=== PATIENT | male | born 1950 | race Caucasian/White ===

== ENCOUNTER → 2016-10-24 | Day surgery (SDC) | payer MEDICARE ==
[~2016-10-24] VITALS: Ht 175.3 cm; Wt 100.0 kg
[~2016-10-24] MED LIST: 0.9% Sodium Chloride 1,000 ML IV SCH; ASPI-973 PO; LOSA1TAB69 PO; MESA4KIT2 RC; Sodium Chloride LOK Flush 10 mL Syringe IV PRN; [UNRECOGNIZED DRUG - CODE] RC; fentaNYL-PF 50 mCg/mL 2 mL Inj IVPUSH PRN
[2016-10-24 09:21] VITALS: BP 120/80; PULSE 60; RESP 14; O2SAT 96
[2016-10-24 10:15] VITALS: BP 123/67; PULSE 65; RESP 15; O2SAT 95
[2016-10-24 10:32] VITALS: BP 130/88; PULSE 68; RESP 14; O2SAT 96
[2016-10-24 10:43] VITALS: BP 118/76; PULSE 52; RESP 14; O2SAT 97
--- NOTE | 2016-10-24 16:20 | ENDO ---
[address] [address] ENDOSCOPY PROCEDURE PATIENT: JORGE LUIS LEÓN : 1950 MR#: [id number] ADMIT: 10/24/2016 JOB ID: [id number] PROCEDURE: Colonoscopy. INDICATION: Rectal bleeding. Patient with a history of proctitis. The patient's ASA classification is II. Mallampati score is II. MEDICATIONS: Versed 4 mg, fentanyl 100 mcg. INSTRUMENT USED: PCF-H180AL. Prep quality was fair. PROCEDURE DETAILS: After informed consent was obtained, the patient was brought into the GI suite, where he was placed on oxygen via nasal cannula and monitored with continuous pulse oximeter, telemetry, and blood pressure monitoring. A time-out was performed. Then, he was placed in a left lateral decubitus position and medications were administered for sedation. Digital rectal exam was performed with palpation of the prostate, which was unremarkable. The colonoscope was then inserted into the rectum and advanced under direct visualization to the cecum, which was identified by the presence of the ileocecal valve and appendiceal orifice. I was unable to intubate the terminal ileum despite multiple attempts. Next, once the cecum was reached, the colonoscope was withdrawn as the mucosa and lumen were examined. Random biopsies were obtained throughout the entire colon. In the rectum, retroflexion was performed. Following retroflexion, remaining air in the rectum was suctioned, procedure was completed. IMPRESSION: Erythema and edema in the distal rectum. Otherwise, normal exam to cecum. Multiple random biopsies were obtained throughout the entire colon and the rectum. IMPRESSION: Distal proctitis. RECOMMENDATIONS: Canasa suppositories daily and hydrocortisone suppositories daily for two weeks. COMPLICATIONS: None. ESTIMATED BLOOD LOSS: Less than 5 mL.
--- NOTE | 2016-10-25 10:35 | PATH ---
SURGICAL PATHOLOGY Attending Physician:Beau Man CASE STATUS: Signed Out PATIENT NAME: JORGE LUIS LEÓN PID: [id number] : 1950 DATE COLLECTED:10/24/2016 16:28 SPECIMEN: 1: Colon, Biopsy 2: Colon, Biopsy 3: Colon, Biopsy 4: Rectum, Biopsy 5: Rectum, Biopsy CLINICAL HISTORY: PHX OF COLITIS, PHX OF POLYPS 1). RIGHT COLON BIOPSY 2). TRANSVERSE COLON BIOPSY 3). LEFT COLON BIOPSY 4). RECTAL BIOPSY 5). DISTAL RECTAL BIOPSY FINAL DIAGNOSIS: 1, 2, 3. Biopsies, Right Colon, Transverse Colon, and Left Colon: Multiple fragments of normal appearing colon mucosa present in all three specimens. Negative for significant architectural distortion. Negative for significant inflammation, dysplasia, and malignancy. 4. Rectal Biopsy: Architectural distortion consistent with quiescent colitis. Negative for dysplasia and malignancy. 5. 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 Negative for dysplasia and malignancy. ICD10: K52.9 GROSS DESCRIPTION: The specimen is received in five formalin filled containers labeled with the patient's name. 1). The specimen is labeled "right colon" and consists of 4 portions of tissue which aggregate to 0.3 x 0.3 x 0.2 CM. The specimen is entirely submitted in cassette 1A. 2). The specimen is labeled "transverse colon" and consists of 4 portions of tissue which aggregate to 0.3 x 0.3 x 0.2 CM. The specimen is entirely submitted in cassette 2A. 3). The specimen is labeled "left colon" and consists of multiple portions of tissue which aggregate to 0.4 x 0.4 x 0.2 CM. The specimen is entirely submitted in cassette 3A. 4). The specimen is labeled "proximal rectal" and consists of 3 portions of tissue which aggregate to 0.2 x 0.2 x 0.2 CM. The specimen is entirely submitted in cassette 4A. 5). The specimen is labeled "distal rectal" and consists of 2 portions of tissue which aggregate to 0.2 x 0.2 x 0.2 CM. The specimen is entirely submitted in cassette 5A. 10/24/2016DC ICD-9 CODES: CPT CODES: 1: 76123 2: 88791 3: 14323 4: 56679 5: 86593 Electronically Signed Out Devin Perez MD [facility] [address], [place] [address] Technical component performed at [facility], [address], [place], [address]
== END | disposition home or self-care (01) ==
LOC: END 00:08
PROVIDERS: ATTEND Internal Medicine Gastroenterology
DX: K62.89 Other specified diseases of anus and rectum (principal); K52.9 Noninfective gastroenteritis and colitis, unspecified; K62.5 Hemorrhage of anus and rectum; Z79.82 Long term (current) use of aspirin; Z79.899 Other long term (current) drug therapy; Z88.8 Allergy status to other drugs, medicaments and biological substances; Z87.891 Personal history of nicotine dependence
CPT/HCPCS: 45380; 88305; G0500; J2250; J3010; J7030